=== PATIENT | male | born 1985 | race Hispanic/Latino ===

== ENCOUNTER 2023-01-13 09:12 | Emergency (ER) | payer SELFPAY ==
[~2023-01-13] VITALS: Ht 165.1 cm; Wt 96.2 kg
[2023-01-13 11:45] VITALS: O2SAT 100
== END 2023-01-13 11:45 | disposition home or self-care (01) ==
LOC: FSED 10:25
DX: R50.9 Fever, unspecified (principal); J06.9 Acute upper respiratory infection, unspecified; R05.9 Cough, unspecified; Z20.822 Contact with and (suspected) exposure to COVID-19
CPT/HCPCS: 0223U; 83518; 87400; 99283

== ENCOUNTER 2023-11-02 12:09 | Emergency (ER) | payer BC ==
[~2023-11-02] VITALS: Ht 165.1 cm; Wt 107.3 kg
[~2023-11-02 12:09] MED LIST: METHOCARBAMOL750 MG PO; NAPROSYN500 MG PO; ONDANSETRON ODT4 MG PO; PANTOPRAZOLE SO40 MG PO; PREDNISONE20 MG PO
[2023-11-02 12:15] VITALS: PULSE 78; RESP 18; TEMP 98.1; O2SAT 98
== END 2023-11-02 12:59 | disposition home or self-care (01) ==
LOC: FSED 12:11
DX: R05.9 Cough, unspecified (principal); U07.1 COVID-19; R51.9 Headache, unspecified
CPT/HCPCS: 0223U; 87400; 99283

== ENCOUNTER 2025-01-10 18:13 | Emergency (ER) | payer SELFPAY ==
[~2025-01-10] VITALS: Ht 165.1 cm; Wt 87.7 kg
[2025-01-10 18:30] VITALS: PULSE 59; RESP 20; TEMP 98; O2SAT 100
[2025-01-10] MEDS ORDERED: CEPHALEXIN500 MG PO (18:50)
[2025-01-10] MEDS: CEPHALEXIN MONOHYDRATE 250 MG CAP PO ONE (18:52)
== END 2025-01-10 19:01 | disposition home or self-care (01) ==
LOC: FSED 18:25
DX: S00.461A Insect bite (nonvenomous) of right ear, initial encounter (principal); F17.210 Nicotine dependence, cigarettes, uncomplicated
CPT/HCPCS: 99282